=== PATIENT | female | born 1935 | race Hispanic/Latino ===

== ENCOUNTER 2021-04-17 08:30 | Emergency (ER) | payer MEDICARE ==
[2021-04-17 08:31] VITALS: BP 135/74
[2021-04-17] MEDS ORDERED: DIATR MEGLU/DIATRIZOATE SODIUM 30 ML BOTTLE ONE (09:05)
== END 2021-04-17 10:52 | disposition home or self-care (01) ==
LOC: EDH 08:30
DX: K94.23 Gastrostomy malfunction (principal); E11.9 Type 2 diabetes mellitus without complications; G30.9 Alzheimer's disease, unspecified; F02.80 Dementia in other diseases classified elsewhere, unspecified severity, without behavioral disturbance, psychotic disturbance, mood disturbance, and anxiety; I10 Essential (primary) hypertension; Z86.73 Personal history of transient ischemic attack (TIA), and cerebral infarction without residual deficits
CPT/HCPCS: 43762; 74018; 99284; Q9963

== ENCOUNTER 2022-01-19 21:24 | Emergency (ER) | payer MEDICARE ==
[~2022-01-19] VITALS: Ht 152.4 cm; Wt 63.5 kg
[2022-01-19 21:51] VITALS: BP 184/71
[2022-01-19] MEDS ORDERED: DIATR MEGLU/DIATRIZOATE SODIUM 30 ML BOTTLE ONE (22:23)
== END 2022-01-19 23:09 | disposition home or self-care (01) ==
LOC: EDH 21:24
DX: K94.23 Gastrostomy malfunction (principal); E11.9 Type 2 diabetes mellitus without complications; I10 Essential (primary) hypertension; G30.9 Alzheimer's disease, unspecified; Z86.73 Personal history of transient ischemic attack (TIA), and cerebral infarction without residual deficits
CPT/HCPCS: 99284; 43762; 74018; Q9963